=== PATIENT | male | born 2005 | race Hispanic/Latino ===

== ENCOUNTER 2024-08-11 21:36 | Emergency (ER) | payer SELFPAY ==
[~2024-08-11] VITALS: Ht 177.8 cm; Wt 66.7 kg
[2024-08-11 22:07] LABS: BASOPHILS # (AUTO) 0.03 K/uL (0.00-0.20); BASOPHILS % (AUTO) 0.3 % (0.0-5.0); EOSINOPHILS # (AUTO) 0.18 K/uL (0.00-0.70); EOSINOPHILS % (AUTO) 1.5 % (0.0-8.0); HEMATOCRIT 41.6 % (42-54); IMMATURE GRANULOCYTE ABSOLUTE 0.04 K/uL (0-1); LYMPHOCYTES # (AUTO) 1.9 K/uL (1.0-4.8); LYMPHOCYTES % (AUTO) 16.2 % (21.0-51.0); MEAN CORPUSCULAR HGB CONC 35.3 g/dL (32.0-36.0); MEAN CORPUSCULAR VOLUME 87.8 fL (80-100); MONOCYTES # (AUTO) 0.9 K/uL (0.1-1.0); NEUTROPHILS # (AUTO) 8.7 K/uL (1.8-7.7); NEUTROPHILS % (AUTO) 73.7 % (40.0-77.0); PLATELET COUNT (AUTO) 256 K/uL (130-400); RED BLOOD CELL COUNT(AUTO) 4.74 MIL/uL (4.50-6.20); RED CELL DISTRIBUTION WIDTH 11.3 % (11.0-15.5); WHITE BLOOD COUNT (AUTO) 11.8 K/uL (4.8-10.8)
[2024-08-11] MEDS: metoCLOPRAmide 10 MG/2 ML VIAL IVP ONE (22:12)
[2024-08-11] MEDS: acetaMINOPHEN 500 MG TABLET PO ONE (22:12)
[2024-08-11] MEDS: DiphenhydrAMINE HCL 50 MG/ML VIAL IV ONE (22:12)
[2024-08-11] MEDS: 0.9%NACL 1000ML 1,000 ML IV ONE (22:12)
[2024-08-11 22:22] LABS: CREATININE 1.2 mg/dL (0.5-1.3); POTASSIUM 4.1 mmol/L (3.5-5.1)
--- NOTE | 2024-08-11 23:05 | ERN ---
ED Note History of Present Illness Stated Complaint: HEADACHE Chief Complaint: Headache Time Seen by MD: 21:40 Time Seen by Midlevel: 21:40 Dictation: The patient is a 19-year-old male with a history of asthma who presents to the emergency department with complaints of three days of right side headache. Patient reports that headache is worse with light. Reports some nausea but no vomiting. Patient denies any head trauma. Patient reports he was seen at another hospital three days ago where he had a CT scan that was negative. Patient was discharged with Excedrin. Allergies: Coded Allergies: No Known Allergies (Unverified Allergy, Unknown, 08/11/24) Past Medical History Past Medical History: Asthma Surgical History: None RN Note Reviewed/Agreed w/PFSH: Yes Review of System Dictation Constitutional: Negative for fever,chills, and weight loss Eyes: Negative for injury, pain,redness, and discharge ENT: Negative for injury,pain or swelling Cardiovascular: Negative for chest pain, palpitations, and edema Respiratory: Negative for shortness of breath, cough, and wheezing, Abdomen/GI: Negative for abdominal pain, nausea, vomiting, diarrhea, and constipation Back: Negative for injury and pain : Negative for injury, bleeding and discharge MS/Extremity: Negative for injury and deformity Skin: Negative for rash, and discoloration Neuro: Negative for weakness, numbness, tingling, and seizure positive for headache Psych: Negative for suicide ideation, homicidal ideation, and hallucinations Initial Vital Sign VS Vital Signs Date Time Temp Pulse Resp B/P (MAP) Pulse Ox O2 Delivery O2 Flow Rate FiO2 08/11/24 21:37 97.2 74 16 127/79 98 Room Air 08/11/24 21:42 0 21 Physical Exam Dictation Vital Signs reviewed General Appearance: Alert, oriented x 3, no acute distress, well developed, nourished. Head and Face: non-traumatic. Eyes: PERRL, pink conjunctivas, eyelid no trauma, anterior chamber with arcus senilis. Ears: Pinnas intact and no signs of trauma or erythema ear canals clear and no discharge TM no erythema Nose: No discharge, no bleeding. Oropharynx: Mouth normal, tongue pink. pharynx clear,no erythema, tonsils no exudates, no abscesses noted, mucous membrane moist Neck: Supple, non-tender, no thyromegaly, no masses, no JVD, no bruits Breast:Deferred Chest:No tenderness, no crepitus, no paradoxical movement, no retractions Lungs:Clear, well-ventilated, symmetric, no rales, no wheezing, no rhonchi, no stridor, good breath sounds bilaterally Heart: Regular rate, regular rhythm, no murmur, no gallops Vascular: no peripheral edema, Abdomen: Soft, positive bowel sounds, nondistended, no guarding, nontender, no rebound, no masses no hepatomegaly, no splenomegaly, no Faith's sign, no hernias. Rectal: Deferred Genital: Deferred Neurological: Normal speech, motor function intact, sensory function intact , upper extremities equal in strength, lower extremities equal in strength, no facial droop, no slurred speech Musculoskeletal: Neck nontender, full range of motion, back nontender, full range of motion, Extremities: nontender, full range of motion Skin: Color pink, dry, no turgor, no rash, no lacerations, no abrasions, no contusions. Lymphatic: Deferred Results (Laboratory/Radiology) Laboratory/Radiology Laboratory Tests Test 08/11/24 21:59 White Blood Count 11.8 K/uL (4.8-10.8) H Red Blood Count 4.74 MIL/uL (4.50-6.20) Hemoglobin 14.7 g/dL (14.0-18.0) Hematocrit 41.6 % (42-54) L Mean Corpuscular Volume 87.8 fL (80-100) Mean Corpuscular Hemoglobin 31.0 pg (27.0-33.0) Mean Corpuscular Hemoglobin Concent 35.3 g/dL (32.0-36.0) Red Cell Distribution Width 11.3 % (11.0-15.5) Platelet Count 256 K/uL (130-400) Mean Platelet Volume 10.2 fL (7.5-10.5) Immature Granulocyte % (Auto) 0.3 % (0-1) Neutrophils (%) (Auto) 73.7 % (40.0-77.0) Lymphocytes (%) (Auto) 16.2 % (21.0-51.0) L Monocytes (%) (Auto) 8.0 % (3.0-13.0) Eosinophils (%) (Auto) 1.5 % (0.0-8.0) Basophils (%) (Auto) 0.3 % (0.0-5.0) Neutrophils # (Auto) 8.7 K/uL (1.8-7.7) H Lymphocytes # (Auto) 1.9 K/uL (1.0-4.8) Monocytes # (Auto) 0.9 K/uL (0.1-1.0) Eosinophils # (Auto) 0.18 K/uL (0.00-0.70) Basophils # (Auto) 0.03 K/uL (0.00-0.20) Absolute Immature Granulocyte (auto 0.04 K/uL (0-1) Nucleated Red Blood Cells 0.0 % (0.0-0.19) Sodium Level 141 mmol/L (136-145) Potassium Level 4.1 mmol/L (3.5-5.1) Chloride Level 108 mmol/L (101-111) Carbon Dioxide Level 28 mmol/L (21-32) Blood Urea Nitrogen 12 mg/dL (7-18) Creatinine 1.2 mg/dL (0.5-1.3) Glomerular Filtration Rate Calc 88 mL/min (>90) Random Glucose 100 mg/dL (70-105) Total Calcium 9.2 mg/dL (8.5-10.1) Labs Reviewed?: Yes ED Course ED Course Orders Procedure Category Date Status Time Cbc With Differential LAB 08/11/24 Complete 21:50 0.9%Nacl 1000ml (Ns PHA 08/11/24 Complete 1000ml) 22:00 Basic Metabolic Panel LAB 08/11/24 Complete 21:50 Acetaminophen 500mg PHA 08/11/24 Complete Tab (Tylenol 500mg T 22:00 Metoclopramide 10 PHA 08/11/24 Complete Mg/2 Ml Vial (Reglan 1 22:00 Diphenhydramine Hcl PHA 08/11/24 Complete (Benadryl Inj) 22:00 Current Medications Medications (Trade) Dose Ordered Sig/Heaven Route PRN Reason Start Time Stop Time Status Last Admin Dose Admin Acetaminophen (TYLenol 500MG TAB) 1,000 mg ONCE ONCE PO 08/11/24 22:00 08/11/24 22:01 DC 08/11/24 22:12 Diphenhydramine HCl (BENAdryl INJ) 25 mg ONCE ONCE IV 08/11/24 22:00 08/11/24 22:01 DC 08/11/24 22:12 Metoclopramide HCl (regLAN 10MG IV) 10 mg ONCE ONCE IVP 08/11/24 22:00 08/11/24 22:01 DC 08/11/24 22:12 Sodium Chloride 1,000 ml @ 0 mls/hr ONCE ONCE IV 08/11/24 22:00 08/11/24 22:01 DC 08/11/24 22:12 Vital Signs Date Time Temp Pulse Resp B/P (MAP) Pulse Ox O2 Delivery O2 Flow Rate FiO2 08/11/24 23:06 98.1 76 16 122/74 98 Room Air* 0 21 08/11/24 21:42 98.1 75 16 125/78 98 Room Air* 0 21 08/11/24 21:37 97.2 74 16 127/79 98 Room Air Medical Decision Making MDM The patient is a 19-year-old male with a history of asthma who presents to the emergency department with complaints of three days of right side headache. Patient reports that headache is worse with light. Reports some nausea but no vomiting. Patient denies any head trauma. Patient reports he was seen at another hospital three days ago where he had a CT scan that was negative. Patient was discharged with Excedrin. CBC showed mild leukocytosis, no anemia, chemistry showed no electrolyte imbalance. Patient reported improving in pain with medications. Patient continues neurologically intact, in no acute distress. Patient instructed to follow up with PCP. Differential diagnosis: Migraine headache, electrolyte imbalance, dehydration Need for hospitalization: Patient does not meet criteria for hospitalization. There are no social concerns with this patient. DX & DISP Disposition: Discharge Departure Impression: Primary Impression: Migraine headache Condition: Stable Additional Instructions: PLEASE FOLLOW UP WITH YOUR PRIMARY DOCTOR IN 1-2 DAYS. IF SYMPTOMS WORSEN PLEASE RETURN TO ER. YOU MAY CONTINUE TAKING THE EXCEDRIN YOU WERE PRESCRIBED AT THE OTHER HOSPITAL NEEDED. FOLLOW-UP WITH PRIMARY CARE PROVIDER IN 1 TO 2 DAYS. TAKE MEDICATIONS DIRECTED HERE IN THE EMERGENCY ROOM. OKAY TO CONTINUE HOME MEDICATIONS UNLESS OTHERWISE DISCUSSED DURING YOUR VISIT IN THE EMERGENCY ROOM TODAY. RETURN TO YOUR NEAREST EMERGENCY ROOM IF SYMPTOMS WORSEN OR IF THERE IS NO IMPROVEMENT. CALL 911 IF YOU NEED IMMEDIATE ASSISTANCE. TAKE TYLENOL OR MOTRIN [id number] NEEDED AND IF NO CONTRAINDICATIONS ARE PRESENT. INCREASE ORAL HYDRATION. A WOUND CULTURE OR URINE CULTURE WAS ORDERED HERE IN THE EMERGENCY ROOM DEPARTMENT PLEASE FOLLOW-UP WITH PRIMARY CARE PROVIDER AND ADVISE THEM TO GET REPEAT PORTS FROM OUR FACILITY. IF YOU HAD ANY BASIL WRAP/SPLINTS THAT WERE APPLIED HERE, PLEASE DO NOT REMOVE THEM UNTIL YOU SEE YOUR PRIMARY CARE OR SPECIALTY. Referrals: SELF,REFERRAL (PCP) Time of Disposition: 23:04 I have reviewed the case, and I agree with, Diagnosis and Plan MILLIE [employer]O [employer] Aug 11, 2024 23:05
[2024-08-11 23:06] VITALS: BP 122/74; PULSE 76; RESP 16; TEMP 98.1; O2SAT 98
--- NOTE | 2024-08-11 23:12 | NUR ---
UNABLE TO DEPART DUE TO REGISTRATION PROCESS
== END 2024-08-11 23:19 | disposition home or self-care (01) ==
LOC: EDH 21:36
DX: G43.909 Migraine, unspecified, not intractable, without status migrainosus (principal); J45.909 Unspecified asthma, uncomplicated
CPT/HCPCS: 99284; 96374; 96375; 80048; 85025; 36415; J1200; J7030; J2765